=== PATIENT | male | born 1955 | race Caucasian/White ===

== ENCOUNTER 2017-01-29 15:40 | Emergency (ER) | payer OTHER ==
[~2017-01-29] VITALS: Ht 182.9 cm; Wt 141.1 kg
[2017-01-29 15:47] VITALS: Ht 182.9 cm; Wt 141.1 kg
[2017-01-29 16:36] LABS: BASO % 0.9 %; BASO ABS # 0.07 K/uL (0-0.2); COMPLETE YES; EOS % 2.5 %; HEMATOCRIT 46.9 % (42-52); IG% 0.5 %; LYMPH % 29.6 %; LYMPH ABS # 2.36 K/uL (1.2-3.4); MEAN CELL VOLUME 93.2 fL (80-100); MEAN CORPUSCULAR HGB CONC 33.3 g/dl (32-36); MEAN PLATELET VOLUME 10.5 fL (7.4-10.4); MONO % 6.4 %; NEUT % 60.1 %; PLATELET COUNT 237 K/uL (130-400); RED BLOOD COUNT 5.03 M/uL (4.7-6.1); WHITE BLOOD COUNT 7.96 K/uL (4.8-10.8)
--- NOTE | 2017-01-29 16:42 | DIAGNOSTIC IMAGING REPORT ---
CHEST ONE VIEW PORTABLE HISTORY: Evaluate Fever/Sepsis COMPARISON: None. FINDINGS: The lungs are clear. Cardiac silhouette is normal in size. No pleural effusions. No pneumothorax. IMPRESSION: No acute process. Electronically signed by: Terrence Chaparro M.D. 01/29/2017 4:41 PM Dictated Date/Time: 01/29/2017 4:40 PM
[2017-01-29 16:46] LABS: INR 1.1 (0.9-1.1); PROTHROMBIN TIME (PATIENT) 11.3 SECONDS (9.0-12.0)
--- NOTE | 2017-01-29 16:51 | EMERGENCY ROOM VISIT NOTE ---
History Report prepared by Jocelyn: Carin Monte Under the Supervision of: Dr. Francisco Floyd D.O. First contact with patient: 16:16 Chief Complaint: CARDIAC ASSESSMENT Stated Complaint: [facility] SENT PT:BLOOD PRESSURE HIGH;CHEST PAIN Nursing Triage Summary: triage note: pt reports "i have high blood pressure that started 1 hour ago while i was at [facility] having left index and middle finger surgery and i have had chest pain for the past few days, i thought it was indigestion." History of Present Illness The patient is a 61 year old male who presents to the Emergency Room with complaints of intermittent chest pain starting a few days ago. He describes the pain to be similar to indigestion. He denies any worsening pain with exertion. He currently denies any pain. The patient had finger surgery today. His vitals were normal before the surgery but his blood pressure was 207/119 after the surgery. He was referred to the Emergency Room. He has a history of hypertension and took his medications as prescribed today. He was given Hydralazine with some improvement. He denies shortness of breath, nausea, vomiting, abdominal pain, or any other complaints. Source of History: patient Onset: a few days ago Position: chest Symptom Intensity: No pain currently Quality: other (indigestion) Timing: intermittent Associated Symptoms: No SOB, No nausea, No vomiting, No abdominal pain Review of Systems See HPI for pertinent positives & negatives. A total of 10 systems reviewed and were otherwise negative. Past Medical & Surgical Medical Problems: (1) Diabetes (2) Hypertension (3) Kidney disease (4) Kidney stones Surgical Problems: (1) H/O sinus surgery Family History Cancer Diabetes mellitus Hypertension Social History Smoking Status: Never Smoker Marital Status: Housing Status: lives with family Occupation Status: employed Current/Historical Medications Scheduled Atorvastatin (Lipitor), 10 MG PO DAILY Carvedilol (Coreg), 12.5 MG PO BID Citalopram (Citalopram Hydrobromide), 20 MG PO DAILY Lisinopril (Zestril), 40 MG PO DAILY Metformin Hcl (Glucophage), 1,000 MG PO BID Allergies Coded Allergies: Rosuvastatin (Unverified Allergy, Unknown, CRAMPING, 01/29/17) Physical Exam Vital Signs Date Time Temp Pulse Resp B/P (MAP) Pulse Ox O2 Delivery O2 Flow Rate FiO2 01/29/17 16:51 64 18 174/100 94 Room Air 01/29/17 16:05 64 01/29/17 15:47 36.4 60 18 179/63 95 Room Air Physical Exam CONSTITUTIONAL/VITAL SIGNS: Reviewed / noted above. GENERAL: Non-toxic in appearance. INTEGUMENTARY: Warm, dry, and [place]. HEAD: Normocephalic. EYES: without scleral icterus or trauma. ENT/OROPHARYNX: clear and moist. LYMPHADENOPATHY/NECK: Is supple without lymphadenopathy or meningismus. RESPIRATORY: Lungs clear and equal. CARDIOVASCULAR: Regular rate and rhythm. GI/ABDOMEN: Soft and nontender. No organomegaly or pulsatile mass. No rebound or guarding. Normal bowel sounds. EXTREMITIES: Warm and well perfused. Left hand reveals thrush bandages without any evidence of bleeding. BACK: No CVA tenderness. NEUROLOGICAL: Intact without focal deficits. PSYCHIATRIC: normal affect. MUSCULOSKELETAL: Normally developed with good muscle tone. Medical Decision & Procedures ER Provider Diagnostic Interpretation: X ray results and stated below per my interpretation and radiology interpretation. CHEST ONE VIEW PORTABLE HISTORY: Evaluate Fever/Sepsis COMPARISON: None. FINDINGS: The lungs are clear. Cardiac silhouette is normal in size. No pleural effusions. No pneumothorax. IMPRESSION: No acute process. Electronically signed by: Terrence Chaparro M.D. 01/29/2017 4:41 PM Dictated Date/Time: 01/29/2017 4:40 PM Laboratory Results 01/29/17 16:25 Red Blood Count 5.03, Mean Corpuscular Volume 93.2, Mean Corpuscular Hemoglobin 31.0, Mean Corpuscular Hemoglobin Concent 33.3, Mean Platelet Volume 10.5, Neutrophils (%) (Auto) 60.1, Lymphocytes (%) (Auto) 29.6, Monocytes (%) (Auto) 6.4, Eosinophils (%) (Auto) 2.5, Basophils (%) (Auto) 0.9, Neutrophils # (Auto) 4.78, Lymphocytes # (Auto) 2.36, Monocytes # (Auto) 0.51, Eosinophils # (Auto) 0.20, Basophils # (Auto) 0.07 01/29/17 16:25 Test 01/29/17 16:25 White Blood Count 7.96 K/uL (4.8-10.8) Red Blood Count 5.03 M/uL (4.7-6.1) Hemoglobin 15.6 g/dL (14.0-18.0) Hematocrit 46.9 % (42-52) Mean Corpuscular Volume 93.2 fL (80-100) Mean Corpuscular Hemoglobin 31.0 pg (25-34) Mean Corpuscular Hemoglobin Concent 33.3 g/dl (32-36) Platelet Count 237 K/uL (130-400) Mean Platelet Volume 10.5 fL (7.4-10.4) Neutrophils (%) (Auto) 60.1 % Lymphocytes (%) (Auto) 29.6 % Monocytes (%) (Auto) 6.4 % Eosinophils (%) (Auto) 2.5 % Basophils (%) (Auto) 0.9 % Neutrophils # (Auto) 4.78 K/uL (1.4-6.5) Lymphocytes # (Auto) 2.36 K/uL (1.2-3.4) Monocytes # (Auto) 0.51 K/uL (0.11-0.59) Eosinophils # (Auto) 0.20 K/uL (0-0.5) Basophils # (Auto) 0.07 K/uL (0-0.2) RDW Standard Deviation 41.0 fL (36.4-46.3) RDW Coefficient of Variation 12.1 % (11.5-14.5) Immature Granulocyte % (Auto) 0.5 % Immature Granulocyte # (Auto) 0.04 K/uL (0.00-0.02) Prothrombin Time 11.3 SECONDS (9.0-12.0) Prothromb Time International Ratio 1.1 (0.9-1.1) Activated Partial Thromboplast Time 25.5 SECONDS (21.0-31.0) Partial Thromboplastin Ratio 1.0 Anion Gap 8.0 mmol/L (3-11) Est Creatinine Clear Calc Drug Dose 104.1 ml/min Estimated GFR () 84.1 Estimated GFR (Non- 72.6 BUN/Creatinine Ratio 11.5 (10-20) Calcium Level 9.3 mg/dl (8.5-10.1) Total Bilirubin 0.5 mg/dl (0.2-1) Direct Bilirubin 0.1 mg/dl (0-0.2) Aspartate Amino Transf (AST/SGOT) 44 U/L (15-37) Alanine Aminotransferase (ALT/SGPT) 59 U/L (12-78) Alkaline Phosphatase 62 U/L (45-117) Total Creatine Kinase 179 U/L (39-308) Creatine Kinase MB 3.0 ng/ml (0.5-3.6) Creatine Kinase MB Ratio 1.7 (0-3.0) Troponin I < 0.015 ng/ml (0-0.045) Total Protein 7.4 gm/dl (6.4-8.2) Albumin 3.7 gm/dl (3.4-5.0) Lipase 161 U/L (73-393) Thyroid Stimulating Hormone (TSH) 1.750 uIu/ml (0.300-4.500) Laboratory results as stated above per my review. ECG Indication: chest pain Rate (beats per minute): 63 Rhythm: normal sinus Findings: RBBB, no acute ischemic change, no ectopy ED Course 1616: Previous medical records were reviewed. The patient was evaluated in room B08. A complete history and physical examination was performed. 1739: On reevaluation, the patient is resting comfortably. I discussed the results and findings with the patient. He verbalized agreement of the treatment plan. He was discharged home. Medical Decision the differential was considered includes acute myocardial infarction, acute coronary syndrome, myocarditis, pericarditis, pericardial effusions /tamponad, esophageal perforation, thoracic aortic dissection, pulmonary embolism, pneumonia, pneumothorax, pancreatitis, shingles, acute cholecystitis, perforated abdominal viscus. Medication Reconciliation: I attest that I have personally reviewed the patient' s current medication list. Blood pressure Screening: Patient was found to have an elevated blood pressure and was referred to their primary doctor for recheck and further treatment. This is a 61-year-old male who presents to the ED with a chief complaint of hypertension and chest pain. The patient had a surgical procedure done on his hand today. The patient was noted to be hypertensive after the procedure. After talking to him, he reported that he had had some heartburn over the past couple of days and a spot of chest pain in the left sternal region. Because of this, the patient was sent to the ED for evaluation. He was not hypertensive prior to the surgical procedure according to the . The patient does take medication for hypertension. His physical exam was unremarkable. Chest x-ray did not show acute disease. Twelve-lead EKG reveals a sinus rhythm with a right bundle-branch block and no acute injury. CBC and complete metabolic panel were normal. Troponin is normal. The patient was told the results of the tests. The patient is felt to be discharged with outpatient follow-up. He was told to have his blood pressure rechecked. This is likely reactive related to his recent surgery procedure. Impression Primary Impression: Hypertension Additional Impression: Retrosternal chest pain Scribe Attestation The scribe's documentation has been prepared under my direction and personally reviewed by me in its entirety. I confirm that the note above accurately reflects all work, treatment, procedures, and medical decision making performed by me. Departure Information Dispostion Home / Self-Care Referrals Leonel Rangel MD (PCP) Forms IMPORTANT VISIT INFORMATION Patient Instructions Chest Pain - [facility] Additional Instructions Follow-up with your doctor for further care and evaluation in 2-7 days. Return to the emergency department for worsening or new symptoms or any concerns. You have been examined and treated today on an emergency basis only. This is not a substitute for, or an effort to provide, complete comprehensive medical care. It is impossible to recognize and treat all injuries or illnesses in a single emergency department visit. It is therefore important that you follow up closely with your doctor. Call as soon as possible for an appointment. Have your blood pressure rechecked by your doctor within one week. Problem Qualifiers
[2017-01-29 16:57] LABS: BLOOD UREA NITROGEN 13 mg/dl (7-18); BUN/CREATININE RATIO 11.5 (10-20); CARBON DIOXIDE 26 mmol/L (21-32); CHLORIDE 105 mmol/L (98-107); GLUCOSE 148 mg/dl (70-99); POTASSIUM 3.9 mmol/L (3.5-5.1); SODIUM 139 mmol/L (136-145)
[2017-01-29] MEDS ORDERED: METF1000 PO (16:57)
[2017-01-29] MEDS ORDERED: LISI40TA PO (16:57)
[2017-01-29] MEDS ORDERED: CARV12.52 PO (16:57)
[2017-01-29] MEDS ORDERED: ATOR10TA82 PO (16:58)
[2017-01-29] MEDS ORDERED: CLX20 PO (16:58)
[2017-01-29 17:06] LABS: CALCIUM 9.3 mg/dl (8.5-10.1)
[2017-01-29 17:08] LABS: ALKALINE PHOSPHATASE 62 U/L (45-117); ALT/SGPT 59 U/L (12-78); AST/SGOT 44 U/L (15-37); CKMB/CK RATIO 1.7 (0-3.0)
[2017-01-29 18:23] VITALS: BP 169/98; PULSE 66; TEMP 36.4; O2SAT 94
== END 2017-01-29 18:10 | disposition home or self-care (01) ==
LOC: C.EDB 15:44
DX: I10 Essential (primary) hypertension (principal); R07.2 Precordial pain; E11.9 Type 2 diabetes mellitus without complications; Z87.442 Personal history of urinary calculi; Z79.899 Other long term (current) drug therapy; Z80.9 Family history of malignant neoplasm, unspecified; Z83.3 Family history of diabetes mellitus; Z82.49 Family history of ischemic heart disease and other diseases of the circulatory system